=== PATIENT | male | born 1980 | race Caucasian/White ===

== ENCOUNTER 2017-06-26 21:58 | Emergency (ER) | payer SELFPAY ==
[~2017-06-26] VITALS: Ht 170.2 cm; Wt 89.5 kg
[2017-06-26 22:00] VITALS: Ht 170.2 cm; Wt 89.5 kg
[2017-06-26] MEDS ORDERED: LIDOCAINE/MYLANTA 40 ML BTL ONE (23:51)
--- NOTE | 2017-07-22 15:26 | ERD ---
ER Documentation Chief Complaint Date/Time DATE: 07/22/17 TIME: 15:24 Chief Complaint ap for 13 days and vomiting for 5-6 x daily for 13 days HPI 36-year-old male presents with epigastric pain for the past week. He has a history of gastritis and this feels similar. No fever. He is tolerating oral intake. Pain is burning 8 out of 10. ROS All systems reviewed and are negative except as per history of present illness. FmHx Family History: No diabetes Physical Exam Physical Exam INITIAL VITAL SIGNS: Reviewed by me GENERAL: Awake, alert and oriented x 4, well appearing, nontoxic, speaking in full sentences. No acute distress NECK: Supple. No masses. Full range of motion. No meningismus. No midline tenderness. RESPIRATORY: Clear to auscultation bilaterally. Symmetric chest wall rise. No wheezing or rales. No accessory muscle use. CV: Regular rate and rhythm. No murmurs, rubs, or gallops. ABDOMEN: Soft, non-distended. Nontender. Negative [place]. Negative McBurneys point tenderness. No CVA tenderness bilaterally. No guarding. No rebound. Results 24 hrs Current Medications Medications (Trade) Dose Ordered Sig/Mario Route PRN Reason Start Time Stop Time Status Last Admin Dose Admin Miscellaneous Medication (Gi Cocktail (2)) 40 ml STK-MED ONCE .ROUTE 06/26/17 23:51 06/27/17 08:56 DC Procedures/MDM A 6-year-old male presents with abdominal pain. He has a history gastritis and this feels similar. The differential diagnosis includes but is not limited to appendicitis, cholelithiasis, cholecystitis, pancreatitis, hepatitis, gastritis , peptic ulcer disease, bowel obstruction, diverticulitis, renal disease including stones, torsion, AAA, pyelonephritis, and others. His GI examination is benign he has no tenderness throughout his abdomen including over his appendix or his gallbladder and he has no CVA tenderness. This is most likely gastritis. He was given a GI cocktail here in the emergency room with improvement of his symptoms. Patient counseled regarding my diagnostic impression and care plan. Prior to discharge all questions answered. Pt agrees with treatment plan and understands strict return precautions. Pt is instructed to follow up with primary care provider within 24-48 hours. Precautionary instructions provided including instructions to return to the ER if not improving or for any worsening or changing symptoms or concerns. Departure Diagnosis: Primary Impression: Gastritis Condition: Stable MAURICE MERINO PA-C Jul 22, 2017 15:26
== END 2017-06-26 23:55 | disposition home or self-care (01) ==
LOC: FTE 21:58 → E/R 23:55
DX: K29.70 Gastritis, unspecified, without bleeding (principal)
CPT/HCPCS: 99282

== ENCOUNTER 2017-09-10 08:37 | Emergency (ER) | payer MEDICAID ==
[~2017-09-10] VITALS: Wt 78.3 kg
[2017-09-10] MEDS ORDERED: LIDOCAINE/MYLANTA 40 ML BTL PO STA (08:56)
[2017-09-10] MEDS ORDERED: ONDANSETRON (ODT) 4 MG TAB ODT STA (08:56)
[2017-09-10] MEDS ORDERED: FAMOTIDINE 20 MG TAB PO STA (08:56)
--- NOTE | 2017-09-10 09:03 | ERD ---
ER Documentation Chief Complaint Chief Complaint ruq pain w n/v HPI Patient is a 36-year-old male with past medical history of gastritis presenting to the emergency department with complaints of generalized abdominal pain intermittently for the past 3 months. He states within the past 2-3 days his pain has become constant. He cannot localize the pain. Patient additionally reports 2 episodes of nonbilious and nonbloody vomiting today. He states his last bowel movement was 5 days ago. Patient is already under the care of a GI specialist, whom he has an appointment with on October 02 for an upper endoscopy. The patient last had a CT scan of his abdomen 1 month ago and he states it was unremarkable. He denies fevers, chills, or other symptoms at this time. ROS All systems reviewed and are negative except as per history of present illness. Medications Home Meds Active Scripts Mineral Oil* (Fleet* Mineral Oil Enema) 133 Ml Oil, 133 ML MS NEEDED for CONSTIPATION, #4 ENEMA Prov:KATH ZIMMERMAN PA-C 09/10/17 Ondansetron (Ondansetron Odt) 4 Mg Tab.rapdis, 4 MG PO Q6H Y for NAUSEA AND/OR VOMITING, #10 TAB Prov:KATH ZIMMERMAN PA-C 09/10/17 Allergies Allergies: Coded Allergies: No Known Allergy (Unverified , 09/10/17) PMhx/Soc History of Surgery: No Anesthesia Reaction: No Hx Neurological Disorder: No Hx Respiratory Disorders: No Hx Cardiac Disorders: No Hx Psychiatric Problems: No Hx Miscellaneous Medical Probl: No Hx Alcohol Use: No Hx Substance Use: No Hx Tobacco Use: No Smoking Status: Never smoker Physical Exam Vitals Vital Signs Date Time Temp Pulse Resp B/P Pulse Ox O2 Delivery O2 Flow Rate FiO2 09/10/17 11:36 98.1 74 20 148/78 98 09/10/17 08:39 98.0 98 20 168/107 98 Physical Exam Const: Nontoxic, well-appearing male in no acute distress. Head: Atraumatic Eyes: Normal Conjunctiva ENT: Normal External Ears, Nose and Mouth. Neck: Full range of motion..~ No meningismus. Resp: Clear to auscultation bilaterally Cardio: Regular rate and rhythm, no murmurs Abd: Soft, generalized abdominal tenderness, no De La Cruz's sign, no McBurney's point tenderness, no rebound tenderness or guarding, non distended. Normal bowel sounds Skin: No petechiae or rashes Back: No midline or flank tenderness. No CVA tenderness. Ext: No cyanosis, or edema Neur: Awake and alert Psych: Normal Mood and Affect Result Diagram: 09/10/1791209/10/17912 Results 24 hrs Laboratory Tests Test 09/10/17 09:13 White Blood Count 10.310^3/ul Red Blood Count 5.8410^6/ul Hemoglobin 17.4g/dl Hematocrit 49.0% Mean Corpuscular Volume 83.9fl Mean Corpuscular Hemoglobin 29.8pg Mean Corpuscular Hemoglobin Concent 35.5g/dl Red Cell Distribution Width 11.9% Platelet Count 91003^3/UL Mean Platelet Volume 9.8fl Neutrophils % 77.1% Lymphocytes % 18.3% Monocytes % 3.8% Eosinophils % 0.1% Basophils % 0.5% Nucleated Red Blood Cells % 0.0/100WBC Neutrophils # 8.010^3/ul Lymphocytes # 1.910^3/ul Monocytes # 0.410^3/ul Eosinophils # 0.010^3/ul Basophils # 0.110^3/ul Nucleated Red Blood Cells # 0.010^3/ul Sodium Level 141mmol/L Potassium Level 4.7mmol/L Chloride Level 98mmol/L Carbon Dioxide Level 30mmol/L Anion Gap 18 Blood Urea Nitrogen 5mg/dl Creatinine 0.69mg/dl Glucose Level 121mg/dl Calcium Level 10.0mg/dl Total Bilirubin 1.7mg/dl Direct Bilirubin 0.00mg/dl Indirect Bilirubin 1.7mg/dl Aspartate Amino Transf (AST/SGOT) 22IU/L Alanine Aminotransferase (ALT/SGPT) 31IU/L Alkaline Phosphatase 77IU/L Total Protein 8.8g/dl Albumin 4.9g/dl Globulin 3.90g/dl Albumin/Globulin Ratio 1.25 Lipase 99U/L Current Medications Medications (Trade) Dose Ordered Sig/Mario Route PRN Reason Start Time Stop Time Status Last Admin Dose Admin Famotidine (Pepcid) 20 mg ONCE STAT PO 09/10/17 08:56 09/10/17 08:58 DC 09/10/17 09:23 Miscellaneous Medication (Gi Cocktail (2)) 40 ml ONCE STAT PO 09/10/17 08:56 09/10/17 08:58 DC 09/10/17 09:23 Ondansetron HCl (Zofran Odt) 4 mg ONCE STAT ODT 09/10/17 08:56 09/10/17 08:58 DC 09/10/17 09:23 Procedures/MDM 36-year-old male presented to the emergency department with complaints of generalized abdominal pain. Review of laboratory results: CBC showed no signs of leukocytosis or anemia. Chemistry panel did show elevated total bilirubin of 1.7. Upon receipt of these results, I did feel was indicated to order a gallbladder ultrasound, which showed no acute findings. X-ray abdomen did show moderate retained fecal matter within the colon consistent with constipation. No evidence of obstructive bowel gas pattern. Approximately 2 small ovoid shaped radiopaque structures within the pelvis possibly representing suppositories. The patient was questioned about these, however he denied using rectal suppositories. They may be undigested capsules. I do not feel they pose an imminent threat to the patient at this time. Patient's pain may be secondary to constipation, and so he was given prescription for Fleet enemas. Other possible etiologic factor may be his gastritis, and so he was advised to continue taking his omeprazole that he has at home and he was also advised to take Zofran as needed. He was given a prescription for this. He agreed with the discharge plan a diagnosis. No evidence of life-threatening pathology at time of discharge. Patient is to follow-up with his primary care physician within the next 1-2 days. He is to return immediately for any new or worsening symptoms. PROCEDURE: US Abdomen. CLINICAL INDICATION: abdominal pain TECHNIQUE: Multiple real-time images were acquired of the patient's right upper quadrant abdomen and retroperitoneum utilizing a high resolution transducer. COMPARISON: None FINDINGS: The liver demonstrates normal echogenicity. The liver is normal in size and no focal solid lesions are seen. The liver measures 15.1 cm in length. The portal vein is patent with normal direction of flow. No intrahepatic biliary dilatation is seen. No gallstones are identified within the gallbladder. There is no pericholecystic fluid or gallbladder wall thickening. The common bile duct measures 4 mm in maximal dimension. The visualized portions of the pancreas are unremarkable. The tail of the pancreas is not seen. No free fluid is identified. The right kidney is normal in size, and demonstrate normal echogenicity and cortical thickness. The right kidney measures 11.8 cm in long dimension. There is no evidence of hydronephrosis. There are no kidney stones. RPTAT: AA IMPRESSION: Unremarkable right upper quadrant abdominal ultrasound. .nIo Barnes MD, Date Time Electronically viewed and signed by .Ino Barnes MD, on 09/10/2017 10: 39 PROCEDURE: XR Abdomen. CLINICAL INDICATION: Constipation, abdominal pain. TECHNIQUE: AP abdomen x-ray. COMPARISON: None. FINDINGS: There is no evidence of an obstructive bowel gas pattern. Moderate retained fecal debris is present within the colon. Approximately 2 small ovoid shaped radiopaque structures are present within the pelvis which may represent suppositories. The osseous structures are unremarkable. IMPRESSION: 1. Moderate retained fecal matter within the colon consistent with constipation. 2. Approximately 2 small ovoid shaped radiopaque structures within the pelvis possibly representing suppositories. 3. No evidence of an obstructive bowel gas pattern. RPTAT: HRSR Physician Leanne Date Time Electronically viewed and signed by Physician Leanne on 09/10/2017 10 :32 Departure Diagnosis: Primary Impression: Abdominal pain Abdominal location: generalized Qualified Code: R10.84 - Generalized abdominal pain Additional Impression: Constipation Constipation type: unspecified constipation type Qualified Code: K59.00 - Constipation, unspecified constipation type Condition: Fair Patient Instructions: Abdominal Pain Referrals: ADRIANNA HARDEN MD, GNANA MD GORDON, RICHARD K MD Additional Instructions: Follow-up anger specialist appointment. Follow up with your PCP within the next 1-3 days for a repeat evaluation. If you require a referral to a specialist , your Primary Care Provider may be able to provide this for you. In most patient cases, a referral is not required. If you have further questions regarding this matter, please ask your Primary Care Provider. Return the the emergency department immediately if symptoms worsen or change. If you have any questions regarding medications, ask your pharmacist or us before you leave. If any adverse reactions, occur while taking your medications, discontinue the treatment and return to the emergency department immediately. If any new or worsening symptoms, uncontrolled fevers, or other unexplained symptoms occur, return to the emergency department immediately. Take your medications as directed, and complete the entire course of treatment. KATH ZIMMERMAN PA-C Sep 10, 2017 09:03
[2017-09-10 09:23] LABS: BASOPHIL # 0.1 10^3/ul (0.0-0.1); BASOPHILS % 0.5 % (0.0-2.0); EOSINOPHILS % 0.1 % (0.0-7.0); HEMOGLOBIN 17.4 g/dl (14.0-18.0); LYMPHOCYTES # 1.9 10^3/ul (0.8-2.9); LYMPHOCYTES % 18.3 % (15.0-51.0); MEAN CORPUSCULAR HEMOGLOBIN 29.8 pg (29.0-33.0); MEAN CORPUSCULAR HGB CONC 35.5 g/dl (32.0-37.0); MEAN CORPUSCULAR VOLUME 83.9 fl (82.0-101.0); MEAN PLATELET VOLUME 9.8 fl (7.4-10.4); MONOCYTE # 0.4 10^3/ul (0.3-0.9); MONOCYTES % 3.8 % (0.0-11.0); NEUTROPHILS % 77.1 % (39.0-77.0); PLATELET COUNT 356 10^3/UL (140-415); RED BLOOD COUNT 5.84 10^6/ul (4.70-6.10); RED CELL DISTRIBUTION WIDTH 11.9 % (11.5-14.5); WHITE BLOOD COUNT 10.3 10^3/ul (4.8-10.8)
[2017-09-10 09:39] LABS: ALBUMIN 4.9 g/dl (3.3-4.9); ALBUMIN/GLOBULIN RATIO 1.25; BILIRUBIN,INDIRECT 1.7 mg/dl (0-1.1); BILIRUBIN,TOTAL 1.7 mg/dl (0.2-1.3); CREATININE 0.69 mg/dl (0.61-1.24); POTASSIUM 4.7 mmol/L (3.5-5.1); TOTAL PROTEIN 8.8 g/dl (6.1-8.1)
--- NOTE | 2017-09-10 10:32 | RADRPT ---
PROCEDURE: XR Abdomen. CLINICAL INDICATION: Constipation, abdominal pain. TECHNIQUE: AP abdomen x-ray. COMPARISON: None. FINDINGS: There is no evidence of an obstructive bowel gas pattern. Moderate retained fecal debris is present within the colon. Approximately 2 small ovoid shaped radiopaque structures are present within the p carlos which may represent suppositories. The osseous structures are unremarkable. IMPRESSION: 1. Moderate retained fecal matter within the colon consistent with constipation. 2. Approximately 2 small ovoid shaped radiopaque structures within the pelvis possibly representing suppositories. 3. No evidence of an obstructive bowel gas pattern. RPTAT: HRSR Physician Leanne Date Time Electronically viewed and signed by Physician Leanne on 09/10/2017 10:32 RR/
--- NOTE | 2017-09-10 10:39 | RADRPT ---
PROCEDURE: US Abdomen. CLINICAL INDICATION: abdominal pain TECHNIQUE: Multiple real-time images were acquired of the patient's right upper quadrant abdomen a nd retroperitoneum utilizing a high resolution transducer. COMPARISON: None FINDINGS: The liver demonstrates normal echogenicity. The liver is normal in size and no focal solid lesions are seen. The liver measures 15.1 cm in length. The portal vein is patent with normal direction of f low. No intrahepatic biliary dilatation is seen. No gallstones are identified within the gallbladder. There is no pericholecystic fluid or gallbladd er wall thickening. The common bile duct measures 4 mm in maximal dimension. The visualized portions of the pancreas are unremarkable. The tail of the pancreas is not seen. No free fluid is identified. The right kidney is normal in size, and demonstrate normal echogenicity and cortical thickness. The right kidney measures 11.8 cm in long dimension. There is no evidence of hydronephrosis. There are no kidney stones. RPTAT: AA IMPRESSION: Unremarkable right upper quadrant abdominal ultrasound. .Ino Barnes MD, Date Time Electronically viewed and signed by .Ino Barnes MD, on 09/10/2017 10:39 .S/
[2017-09-10] MEDS ORDERED: MINE133E23 PR (11:04)
[2017-09-10] MEDS ORDERED: ONDA4TAB14 PO (11:04)
[2017-09-10 11:36] VITALS: BP 148/78; PULSE 74; RESP 20; TEMP 98.1
== END 2017-09-10 11:20 | disposition home or self-care (01) ==
LOC: FTE 08:37
DX: K59.00 Constipation, unspecified (principal)
CPT/HCPCS: 36415; 74000; 76705; 80053; 83690; 85025; Z7502; Z7610